=== PATIENT | male | born 1935 | race Caucasian/White ===

== ENCOUNTER 2024-05-01 10:49 | Outpatient (CLI) | payer MEDICARE, BC | END 2024-05-01 10:50 | disposition home or self-care (01) | LOC: CSHMRI 10:49 | PROVIDERS: ATTEND Family Medicine | DX: G58.9 Mononeuropathy, unspecified (principal); M47.816 Spondylosis without myelopathy or radiculopathy, lumbar region; M48.061 Spinal stenosis, lumbar region without neurogenic claudication | CPT/HCPCS: 72148 ==